=== PATIENT | female | born 1995 | race Caucasian/White ===

== ENCOUNTER 2021-12-27 11:47 | Emergency (ER) | payer OTHER ==
[~2021-12-27] VITALS: Wt 67.1 kg
[~2021-12-27 11:47] MED LIST: AMOXICILLIN500 MG PO; CLARITIN10 MG PO; MOTRIN400 MG PO; MOTRIN800 MG PO; NO DAILY MEDS; ZITHROMAX Z PA250 MG PO; ZOFRAN ODT4 MG SL
[2021-12-27 12:12] LABS: BILIRUBIN Negative (Negative); BLOOD 1+ (Negative); CLARITY Cloudy (Clear); COLOR Yellow (Yellow); GLUCOSE Negative (Negative); KETONE 4+ (Negative); LEUKO ESTERASE 2+ (Negative); NITRITE Positive (Negative); PH 5.5 (4.5-8.0)
[2021-12-27 12:23] LABS: BASO % 0.2 % (0.0-1.0); HEMATOCRIT 38.8 % (37.0-47.0); LYMPH # 0.8 10*3/uL (1.3-4.4); MEAN CELL VOLUME 89.8 fl (81.0-99.0); MEAN CORPUSCULAR HGB 30.3 pg (27.0-31.0); MEAN CORPUSCULAR HGB CONC 33.8 g/dl (33.0-37.0); MEAN PLATELET VOLUME 9.3 fl (9.6-12.3); MONO # 1.2 10*3/uL (0.1-1.0); MONO % 8.6 % (3.0-9.0); NEUT # 11.6 10*3/uL (2.3-7.9); NEUT % 84.7 % (47.0-73.0); PLATELET COUNT AUTOMATED 268 10*3/uL (130-400); RED BLOOD COUNT 4.32 10*6/uL (4.10-5.10); RED CELL DISTRI WIDTH 12.5 % (0-14.5); WHITE BLOOD COUNT 13.7 10*3/uL (4.8-10.8)
[2021-12-27 12:28] LABS: MUCOUS 1+; WBC 41-50 wbc/hpf (0-5)
[2021-12-27 12:29] LABS: BACTERIA 4+
[2021-12-27 12:30] LABS: RBC 0-2 rbc/hpf (0-2)
[2021-12-27 12:51] LABS: ACT PARTIAL THROMBO TIME 31.4 SECONDS (20.0-32.1); INTERNATIONAL NORM RATIO 1.1 (2.0-3.5)
[2021-12-27 12:55] LABS: ALKALINE PHOSPHATASE 57 U/L (45-117); BUN 11 mg/dl (7-24); CHLORIDE 107 mmol/L (98-107); CREATININE 0.81 mg/dL (0.55-1.02); POTASSIUM 3.2 mmol/L (3.5-5.1); SGOT/AST 8 IU/L (3-35); SGPT/ALT 17 U/L (12-78); SODIUM 137 mmol/L (136-145); TOTAL PROTEIN 7.8 gm/dL (6.4-8.2)
== END 2021-12-27 15:40 | disposition left against medical advice (07) ==
LOC: ED 11:47
PROVIDERS: Nurse Practitioner Family
DX: A41.9 Sepsis, unspecified organism (principal); R65.20 Severe sepsis without septic shock; N13.2 Hydronephrosis with renal and ureteral calculous obstruction; N39.0 Urinary tract infection, site not specified

== ENCOUNTER → 2022-04-21 | Outpatient (CLI) | payer OTHER | END | disposition home or self-care (01) | LOC: US 02-23 14:00 | PROVIDERS: ATTEND Urology | DX: N20.0 Calculus of kidney (principal) ==